=== PATIENT | female | born 1985 | race Two or more races ===

== ENCOUNTER → 2022-04-13 | Outpatient (CLI) | payer BC ==
[2022-04-13 08:04] LABS: Basophils # (auto) 0.1 10 ^3/uL (0-0.2); Basophils % (auto) 1.3 % (0.0-2.0); Eosinophils # (auto) 0.2 10 ^3/uL (0-0.8); Eosinophils % (auto) 2.6 % (0.0-7.0); Hematocrit 39.6 % (36.0-46.0); Hemoglobin 13.3 g/dL (12.2-16.2); Lymphocytes # (auto) 1.4 10 ^3/uL (0.4-5.4); Lymphocytes % (auto) 21.9 % (10.0-50.0); Mean Corpuscular Hemoglobin 29.9 pg (28.0-32.0); Mean Corpuscular Hgb Conc. 33.7 g/dL (32.0-36.0); Mean Corpuscular Volume 88.6 fL (80.0-100.0); Monocytes # (auto) 0.6 10 ^3/uL (0-1.3); Monocytes % (auto) 9.6 % (0.0-12.0); Neutrophils # (auto) 4.1 10 ^3/uL (1.6-8.6); Neutrophils % (auto) 64.6 % (37.0-80.0); Nucleated Red Blood Cells % 0.1 %; Red Blood Cells 4.47 10^6/uL (4.0-5.20); Red Cell Distribution Width 13.2 % (11.8-14.3); White Blood Cell 6.4 10^3/uL (4.4-10.8)
[2022-04-13 08:44] LABS: Albumin 3.6 g/dL (3.4-5.0); Potassium 4.4 mmol/L (3.5-5.1)
[2022-04-13 08:49] LABS: Bilirubin, Total 0.2 mg/dL (0.2-1.0); Total Protein 7.4 g/dL (6.4-8.2)
== END | disposition home or self-care (01) ==
LOC: LAB 07:46
PROVIDERS: ATTEND Student in an Organized Health Care Education/Training Program
DX: Z00.00 Encounter for general adult medical examination without abnormal findings (principal); E78.5 Hyperlipidemia, unspecified
CPT/HCPCS: 36415; 80053; 80061; 85025

== ENCOUNTER → 2022-08-17 | Outpatient (CLI) | payer BC | END | disposition home or self-care (01) | LOC: LAB 17:00 | PROVIDERS: ATTEND Obstetrics & Gynecology Obstetrics | DX: R87.810 Cervical high risk human papillomavirus (HPV) DNA test positive (principal) ==

== ENCOUNTER → 2024-01-21 | Outpatient (CLI) | payer BC ==
[2024-01-21 07:21] LABS: Basophils # (auto) 0.1 10 ^3/uL (0-0.2); Basophils % (auto) 0.9 % (0.0-2.0); Eosinophils # (auto) 0.1 10 ^3/uL (0-0.8); Eosinophils % (auto) 2.1 % (0.0-7.0); Hematocrit 40.7 % (36.0-46.0); Hemoglobin 13.4 g/dL (12.2-16.2); Lymphocytes # (auto) 1.4 10 ^3/uL (0.4-5.4); Lymphocytes % (auto) 21.8 % (10.0-50.0); Mean Corpuscular Hemoglobin 29.4 pg (28.0-32.0); Mean Corpuscular Hgb Conc. 32.9 g/dL (32.0-36.0); Mean Corpuscular Volume 89.5 fL (80.0-100.0); Monocytes # (auto) 0.5 10 ^3/uL (0-1.3); Monocytes % (auto) 8.5 % (0.0-12.0); Neutrophils # (auto) 4.3 10 ^3/uL (1.6-8.6); Neutrophils % (auto) 66.7 % (37.0-80.0); Red Blood Cells 4.55 10^6/uL (4.0-5.20); Red Cell Distribution Width 13.9 % (11.8-14.3); White Blood Cell 6.5 10^3/uL (4.4-10.8)
[2024-01-21 07:43] LABS: Alanine Aminotransferase 27 U/L (7-40); Albumin 4.3 g/dL (3.2-4.8); Alkaline Phosphatase 87 U/L (46-116); Anion Gap 5 (5-15); Aspartate Aminotransferase 19 U/L (13-40); BUN/Creatinine Ratio 11.3 (10.0-20.0); Bilirubin, Total 0.5 mg/dL (0.2-1.0); Blood Urea Nitrogen 7 mg/dL (9-23); Calcium 9.3 mg/dL (8.5-10.1); Carbon Dioxide 28 mmol/L (20-30); Chloride 107 mmol/L (98-107); Cholesterol 208 mg/dL (< 200); Glucose 102 mg/dL (74-106); HDL Cholesterol 67 mg/dL (40-59); LDL Cholesterol 117 mg/dL (< 100); Potassium 3.8 mmol/L (3.5-5.1); Sodium 140 mmol/L (136-145); Triglycerides 91 mg/dL (< 150)
== END | disposition home or self-care (01) ==
LOC: LAB 06:51
PROVIDERS: ATTEND Student in an Organized Health Care Education/Training Program
DX: R00.2 Palpitations (principal); E66.01 Morbid (severe) obesity due to excess calories; R07.89 Other chest pain; F41.9 Anxiety disorder, unspecified
CPT/HCPCS: 36415; 80053; 80061; 84439; 84443; 85025

== ENCOUNTER → 2024-02-29 | Outpatient (CLI) | payer BC | END | disposition home or self-care (01) | LOC: XYW 07:50 | PROVIDERS: ATTEND Student in an Organized Health Care Education/Training Program | DX: R07.9 Chest pain, unspecified (principal) | CPT/HCPCS: 93306 ==

== ENCOUNTER 2025-02-13 09:46 | Outpatient (CLI) | payer BC ==
[2025-02-13 10:25] LABS: Basophils # (auto) 0.1 10 ^3/uL (0-0.2); Eosinophils # (auto) 0 10 ^3/uL (0-0.8); Eosinophils % (auto) 0.4 % (0.0-7.0); Lymphocytes # (auto) 1.3 10 ^3/uL (0.4-5.4)
[2025-02-13 10:27] LABS: Basophils % (auto) 0.8 % (0.0-2.0); Hematocrit 35.9 % (36.0-46.0); Hemoglobin 11.6 g/dL (12.2-16.2); Lymphocytes % (auto) 15.9 % (10.0-50.0); Mean Corpuscular Hemoglobin 24.8 pg (28.0-32.0); Mean Corpuscular Hgb Conc. 32.4 g/dL (32.0-36.0); Mean Corpuscular Volume 76.6 fL (80.0-100.0); Monocytes # (auto) 0.7 10 ^3/uL (0-1.3); Monocytes % (auto) 8.9 % (0.0-12.0); Neutrophils # (auto) 5.8 10 ^3/uL (1.6-8.6); Platelet Count (auto) 183 10^3/uL (140-450); Red Blood Cells 4.69 10^6/uL (4.0-5.20); Red Cell Distribution Width 17.4 % (11.8-14.3); White Blood Cell 7.9 10^3/uL (4.4-10.8)
[2025-02-13 10:54] LABS: Amphetamine Screen, Urine Neg (NEGATIVE); Barbiturate Scree,Urine Neg (NEGATIVE); Benzodiazephine Screen, Urine Neg (NEGATIVE); Cannabinoid Screen, Urine Neg (NEGATIVE); Cocaine Screen, Urine Neg (NEGATIVE); Opiate Scree,Urine Neg (NEGATIVE); Phencyclidine Screen, Urine Neg (NEGATIVE)
[2025-02-15 06:07] LABS: Chlamydia Trachomatis, NAA Negative (Negative); Neisseria gonorrhoeae, NAA Negative (Negative)
== END 2025-02-13 17:00 | disposition home or self-care (01) ==
LOC: LAB 09:46
PROVIDERS: ATTEND Obstetrics & Gynecology
DX: Z34.80 Encounter for supervision of other normal pregnancy, unspecified trimester (principal); Z72.51 High risk heterosexual behavior; Z3A.00 Weeks of gestation of pregnancy not specified
CPT/HCPCS: 36415; 80307; 83036; 84144; 84702; 85025; 86703; 86762; 86780; 86850; 86900; 86901; 87086; 87340

== ENCOUNTER 2025-02-26 08:32 | Outpatient (CLI) | payer BC | END 2025-02-26 17:00 | disposition home or self-care (01) | LOC: LAB 08:32 | PROVIDERS: ATTEND Obstetrics & Gynecology | DX: Z34.80 Encounter for supervision of other normal pregnancy, unspecified trimester (principal); Z3A.00 Weeks of gestation of pregnancy not specified; Z72.51 High risk heterosexual behavior | CPT/HCPCS: 82951 ==

== ENCOUNTER 2025-07-02 11:04 | Outpatient (CLI) | payer OTHER, MEDICAID | END 2025-07-02 17:00 | disposition home or self-care (01) | LOC: LAB 11:04 | DX: O23.40 Unspecified infection of urinary tract in pregnancy, unspecified trimester (principal); N39.0 Urinary tract infection, site not specified; Z3A.00 Weeks of gestation of pregnancy not specified | CPT/HCPCS: 87086 ==

== ENCOUNTER 2025-07-11 09:20 | Observation (INO) | payer OTHER, MEDICAID ==
[2025-07-11 10:27] LABS: Hemoglobin 10.6 g/dL (12.2-16.2); Mean Corpuscular Hemoglobin 26.7 pg (28.0-32.0); Nucleated Red Blood Cells % 0.0 %
[2025-07-11 10:30] LABS: Hematocrit 32.4 % (36.0-46.0); Mean Corpuscular Volume 81.6 fL (80.0-100.0)
[2025-07-11 10:37] LABS: Protein, Urine 8.2 mg/dL (1-14)
[2025-07-11 10:42] LABS: Alanine Aminotransferase 22 U/L (7-40); Albumin 3.4 g/dL (3.2-4.8); Alkaline Phosphatase 77 U/L (46-116); Anion Gap 10 (5-15); BUN/Creatinine Ratio 16.3 (10.0-20.0); Carbon Dioxide 23 mmol/L (20-31); Chloride 106 mmol/L (98-107); Glucose 79 mg/dL (74-106); INR 0.97 (0.9-1.15); Partial Thromboplastin Time 28.5 SEC (24.5-34.5); Potassium 3.8 mmol/L (3.5-5.1); Prothrombin Time 10.3 sec (9.3-11.8); Sodium 139 mmol/L (136-145); Total Protein 6.1 g/dL (5.7-8.2)
[2025-07-11 10:46] LABS: Bilirubin, Total 0.3 mg/dL (0.2-1.0); Blood Urea Nitrogen 7 mg/dL (9-23); Calcium 8.5 mg/dL (8.7-10.4)
[2025-07-11 11:05] LABS: Uric Acid 5.5 mg/dL (3.1-7.8)
[2025-07-11] MEDS ORDERED: PREN-96 PO (11:16)
[2025-07-11 11:33] LABS: Urine Protein, UAD Negative (Negative)
== END 2025-07-11 11:31 | disposition home or self-care (01) ==
LOC: LDRP 09:20
PROVIDERS: ADMIT Obstetrics & Gynecology; ATTEND Obstetrics & Gynecology
DX: O24.419 Gestational diabetes mellitus in pregnancy, unspecified control (principal); R79.1 Abnormal coagulation profile; Z98.890 Other specified postprocedural states; Z3A.27 27 weeks gestation of pregnancy
CPT/HCPCS: 36415; 80053; 81001; 81002; 82570; 82948; 82962; 84156; 84550; 85025; 85610; 85730; 94760; G0378; 59025

== ENCOUNTER 2025-07-13 06:03 | Observation (INO) | payer MEDICAID, OTHER ==
[~2025-07-13] VITALS: Ht 154.9 cm; Wt 102.5 kg
[~2025-07-13 06:03] MED LIST: PREN-96 PO
[2025-07-13 10:54] LABS: Protein, Urine < 6.0 mg/dL (1-14)
[2025-07-13 10:56] LABS: Protein, Urine 6.6 mg/dL (1-14)
[2025-07-13] MEDS ORDERED: METF-370 PO (11:03)
[2025-07-13 11:05] LABS: Urine Protein, UAD Negative (Negative)
[2025-07-13 11:32] LABS: Urine Total Volume, 24 Hours 3850 mL
--- NOTE | 2025-07-13 12:09 | DVHDS2 ---
Physician Discharge Progress N Final Diagnosis: IUP @ 28wks and stable Secondary Diagnosis: Elevated BP without diagnosis of HTN Operations or Procedures: Operations or Procedures NST Other Interventions Other Interventions PIH labs neg Condition on Discharge: Stable Disposition: Home Discharge Instructions: Diet: Regular Activity: No Restrictions, As Tolerated Follow Up/Referral: PRN Medications: N/A Follow Up Care: Discharge Statement: "Patient was advised to return to the ER or call 911 if any headaches, dizziness, shortness of breath, chest pain, abdominal pain, bleeding, fevers, or worsening of medical condition. Patient was counseled about treatment plan, medications, possible side effects, patientverbalized understanding. All questions were answered to the best of my ability. This discharge took greater then 30 minutes in planning, reviewing documentation, counseling the patient, and discussing with other team members." Visit Coding OBGYN Date of Service: Jul 13, 2025 Billing Provider: SARAH SCHUSTER DO SECRETARIAL STENOGRAPHER Common Visit Codes: 54021-TZT/OBS SAME DATE (HIGH) SECRETARIAL STENOGRAPHER Procedure Codes: 51766-85- NON-STRESS TEST SARAH SCHUSTER DO Jul 13, 2025 12:09
== END 2025-07-13 11:50 | disposition home or self-care (01) ==
LOC: LDRP 09:47
PROVIDERS: ADMIT Obstetrics & Gynecology; ATTEND Obstetrics & Gynecology
DX: O26.893 Other specified pregnancy related conditions, third trimester (principal); R03.0 Elevated blood-pressure reading, without diagnosis of hypertension; Z3A.28 28 weeks gestation of pregnancy; Z98.890 Other specified postprocedural states; Z79.899 Other long term (current) drug therapy
CPT/HCPCS: 59025; 81001; 82570; 82948; 82962; 84156; 94760; G0378

== ENCOUNTER 2025-07-16 08:37 | Observation (INO) | payer OTHER, MEDICAID ==
[~2025-07-16 08:37] MED LIST changes: +METF-370 PO
--- NOTE | 2025-07-17 05:40 | DVHDS2 ---
Discharge Summary Date of Admission Jul 16, 2025 at 09:02 Date of Discharge: Jul 16, 2025 Admitting Diagnosis Twenty-eight weeks GDM A2 PIH Labs/Diagnostic Data: Laboratory Results Test 07/16/25 10:05 POC Glucose 88 mg/dl (70-106) Brief Hx & Hospital Course: Patient here for NST BPP both reassuring and performed Condition at Discharge: Good Final Diagnosis/Problems List Reassuring 28 week intrauterine with history PH GDM A2 Discharge Disposition: Home Discharge Instruct/Medications Diet: Regular, Consistent carbohydrate Activity: No Restrictions, As Tolerated Follow Up/Referral: As scheduled routine Medications: Continue current medications Scheduled Metformin Hydrochloride (Metformin Hcl), 500 MG PO DAILY, (Reported) Vit W/ Ferrous Fumara ( One Daily), 1 TAB PO DAILY, (Reported) Discharge Statement: "Patient was advised to return to the ER or call 911 if any headaches, dizziness, shortness of breath, chest pain, abdominal pain, bleeding, fevers, or worsening of medical condition. Patient was counseled about treatment plan, medications, possible side effects, patientverbalized understanding. All questions were answered to the best of my ability. This discharge took greater then 30 minutes in planning, reviewing documentation, counseling the patient, and discussing with other team members." ASSESSMENT ASSESSMENT Assessment Visit Coding OBGYN Date of Service: Jul 16, 2025 Billing Provider: ERIKA MEYERS DO UNIFIED COMMUNICATIONS ENGINEER Common Visit Codes: 06888-[id number] INP/OBS CARE(HIGH), 33375-LQA/OBS SAME DATE (LOW), 71366-ZSM/OBS SAME DATE (MOD) UNIFIED COMMUNICATIONS ENGINEER Procedure Codes: 29196-54- NON-STRESS TEST ERIKA MEYERS DO Jul 17, 2025 05:39
== END 2025-07-16 10:45 | disposition home or self-care (01) ==
LOC: LDRP 09:02
PROVIDERS: ADMIT Obstetrics & Gynecology; ATTEND Obstetrics & Gynecology
DX: O24.419 Gestational diabetes mellitus in pregnancy, unspecified control (principal); O13.3 Gestational [pregnancy-induced] hypertension without significant proteinuria, third trimester; Z3A.28 28 weeks gestation of pregnancy; Z98.890 Other specified postprocedural states
CPT/HCPCS: 59025; 81002; 82948; 82962; 94760; G0378

== ENCOUNTER 2025-07-19 06:08 | Observation (INO) | payer OTHER, MEDICAID ==
--- NOTE | 2025-07-20 13:23 | DVHDS2 ---
Physician Discharge Progress N Final Diagnosis: gdm 28wks Operations or Procedures: Operations or Procedures nst reactive reviwed,sono Condition on Discharge: Good Disposition: Home Discharge Instructions: Diet: Regular, Consistent carbohydrate Activity: No Restrictions, As Tolerated Medications: na Follow Up Care: Specialist: 3d Discharge Statement: "Patient was advised to return to the ER or call 911 if any headaches, dizziness, shortness of breath, chest pain, abdominal pain, bleeding, fevers, or worsening of medical condition. Patient was counseled about treatment plan, medications, possible side effects, patientverbalized understanding. All questions were answered to the best of my ability. This discharge took greater then 30 minutes in planning, reviewing documentation, counseling the patient, and discussing with other team members." Visit Coding OBGYN Date of Service: Jul 19, 2025 Billing Provider: KAT LEWIS DO DOPE AND FABRIC WORKER Common Visit Codes: 72669-WFZKIPH OBS CARE (HIGH) DOPE AND FABRIC WORKER Procedure Codes: 10415-83- NON-STRESS TEST KAT LEWIS DO Jul 20, 2025 13:23
== END 2025-07-19 08:53 | disposition home or self-care (01) ==
LOC: LDRP 08:00 → UNDOADMOB 08:00 → LDRP 08:10 → UNDODISOB 08:53
PROVIDERS: ADMIT Obstetrics & Gynecology; ATTEND Obstetrics & Gynecology
DX: O24.419 Gestational diabetes mellitus in pregnancy, unspecified control (principal); Z3A.28 28 weeks gestation of pregnancy; Z98.890 Other specified postprocedural states
CPT/HCPCS: 59025; 81002; 82948; 82962; 94760; G0378

== ENCOUNTER 2025-07-23 08:10 | Observation (INO) | payer OTHER, MEDICAID ==
--- NOTE | 2025-07-23 21:56 | DVHDS2 ---
Discharge Summary Date of Admission Jul 23, 2025 at 08:17 Date of Discharge: Jul 23, 2025 Admitting Diagnosis Twenty-nine week GDM A2 Labs/Diagnostic Data: Laboratory Results Test 07/23/25 09:00 POC Glucose 106 mg/dl (70-106) Brief Hx & Hospital Course: Patient had NST BPP performed reassuring Operations or Procedures NST BPP Condition at Discharge: Good Final Diagnosis/Problems List GDM A2 29+ weeks Discharge Disposition: Home Discharge Instruct/Medications Diet: Consistent carbohydrate Activity: No Restrictions, As Tolerated Activity comment: Kick counts labor precautions carbohydrate Follow Up/Referral: As scheduled routine Medications: Resume home meds Scheduled Metformin Hydrochloride (Metformin Hcl), 500 MG PO DAILY, (Reported) Vit W/ Ferrous Fumara ( One Daily), 1 TAB PO DAILY, (Reported) Discharge Statement: "Patient was advised to return to the ER or call 911 if any headaches, dizziness, shortness of breath, chest pain, abdominal pain, bleeding, fevers, or worsening of medical condition. Patient was counseled about treatment plan, medications, possible side effects, patientverbalized understanding. All questions were answered to the best of my ability. This discharge took greater then 30 minutes in planning, reviewing documentation, counseling the patient, and discussing with other team members." ASSESSMENT ASSESSMENT Assessment Visit Coding OBGYN Date of Service: Jul 23, 2025 Billing Provider: ERIKA MEYERS DO FIRE EXTINGUISHER TECHNICIAN Common Visit Codes: 04471-[id number] INP/OBS CARE(HIGH), 80159-FFJ/OBS SAME DATE (LOW), 33511-OCG/OBS SAME DATE (MOD) FIRE EXTINGUISHER TECHNICIAN Procedure Codes: 76768-63- NON-STRESS TEST ERIKA MEYERS DO Jul 23, 2025 21:56
== END 2025-07-23 09:33 | disposition home or self-care (01) ==
LOC: UNDOADMOB 08:10 → LDRP 08:10
PROVIDERS: ADMIT Obstetrics & Gynecology; ATTEND Obstetrics & Gynecology
DX: O24.419 Gestational diabetes mellitus in pregnancy, unspecified control (principal); Z3A.29 29 weeks gestation of pregnancy; Z98.890 Other specified postprocedural states
CPT/HCPCS: 59025; 81002; 82948; 82962; 94760; G0378

== ENCOUNTER 2025-07-26 06:16 | Observation (INO) | payer OTHER, MEDICAID ==
--- NOTE | 2025-07-27 13:11 | DVHDS2 ---
Physician Discharge Progress N Final Diagnosis: gdm Operations or Procedures: Operations or Procedures nst reactive reviwed,sono Condition on Discharge: Good Disposition: Home Discharge Instructions: Diet: Regular Activity: No Restrictions, As Tolerated Medications: na Follow Up Care: Specialist: 1w Discharge Statement: "Patient was advised to return to the ER or call 911 if any headaches, dizziness, shortness of breath, chest pain, abdominal pain, bleeding, fevers, or worsening of medical condition. Patient was counseled about treatment plan, medications, possible side effects, patientverbalized understanding. All questions were answered to the best of my ability. This discharge took greater then 30 minutes in planning, reviewing documentation, counseling the patient, and discussing with other team members." Visit Coding OBGYN Date of Service: Jul 26, 2025 Billing Provider: KAT LEWIS DO CORPORATE RECYCLING MANAGER Common Visit Codes: 71640-JMGBZVA OBS CARE (HIGH) CORPORATE RECYCLING MANAGER Procedure Codes: 04738-79- NON-STRESS TEST KAT LEWIS DO Jul 27, 2025 13:11
== END 2025-07-26 09:33 | disposition home or self-care (01) ==
LOC: LDRP 08:15
PROVIDERS: ADMIT Obstetrics & Gynecology; ATTEND Obstetrics & Gynecology
DX: O24.419 Gestational diabetes mellitus in pregnancy, unspecified control (principal); Z3A.29 29 weeks gestation of pregnancy; Z98.890 Other specified postprocedural states
CPT/HCPCS: 59025; 81002; 82948; 82962; 94760; G0378

== ENCOUNTER 2025-07-30 00:51 | Observation (INO) | payer OTHER, MEDICAID ==
--- NOTE | 2025-07-31 01:02 | DVHDS2 ---
Physician Discharge Progress N Final Diagnosis: GDMA2 30wks Operations or Procedures: Operations or Procedures nst reactive reviwed,sono Condition on Discharge: Good Disposition: Home Discharge Instructions: Diet: Consistent carbohydrate Activity: No Restrictions, As Tolerated Medications: na Follow Up Care: Specialist: 4d Discharge Statement: "Patient was advised to return to the ER or call 911 if any headaches, dizziness, shortness of breath, chest pain, abdominal pain, bleeding, fevers, or worsening of medical condition. Patient was counseled about treatment plan, medications, possible side effects, patientverbalized understanding. All questions were answered to the best of my ability. This discharge took greater then 30 minutes in planning, reviewing documentation, counseling the patient, and discussing with other team members." Visit Coding OBGYN Date of Service: Jul 30, 2025 Billing Provider: KAT LEWIS DO CALL OUT CLERK Common Visit Codes: 49921-GJSANQB OBS CARE (HIGH) CALL OUT CLERK Procedure Codes: 71173-86- NON-STRESS TEST KAT LEWIS DO Jul 31, 2025 01:02
== END 2025-07-30 10:25 | disposition home or self-care (01) ==
LOC: LDRP 09:11
PROVIDERS: ADMIT Obstetrics & Gynecology; ATTEND Obstetrics & Gynecology
DX: O24.419 Gestational diabetes mellitus in pregnancy, unspecified control (principal); Z3A.30 30 weeks gestation of pregnancy; Z98.890 Other specified postprocedural states
CPT/HCPCS: 59025; 81002; 82948; 82962; 94760; G0378

== ENCOUNTER 2025-08-04 04:40 | Observation (INO) | payer OTHER, MEDICAID ==
--- NOTE | 2025-08-04 11:58 | DVHDS2 ---
Physician Discharge Progress N Final Diagnosis: gdma2 31wks Operations or Procedures: Operations or Procedures nst reactive reviwed,sono Condition on Discharge: Good Disposition: Home Discharge Instructions: Diet: Consistent carbohydrate Activity: No Restrictions, As Tolerated Medications: na Follow Up Care: Specialist: 3d Discharge Statement: "Patient was advised to return to the ER or call 911 if any headaches, dizziness, shortness of breath, chest pain, abdominal pain, bleeding, fevers, or worsening of medical condition. Patient was counseled about treatment plan, medications, possible side effects, patientverbalized understanding. All questions were answered to the best of my ability. This discharge took greater then 30 minutes in planning, reviewing documentation, counseling the patient, and discussing with other team members." Visit Coding OBGYN Date of Service: Aug 04, 2025 Billing Provider: KAT LEWIS DO MEDICAL DRIVER Common Visit Codes: 64093-QDFPMAS OBS CARE (HIGH) MEDICAL DRIVER Procedure Codes: 92472-37- NON-STRESS TEST KAT LEWIS DO Aug 04, 2025 11:58
== END 2025-08-04 11:35 | disposition home or self-care (01) ==
LOC: LDRP 10:02
PROVIDERS: ADMIT Obstetrics & Gynecology; ATTEND Obstetrics & Gynecology
DX: O24.419 Gestational diabetes mellitus in pregnancy, unspecified control (principal); Z3A.31 31 weeks gestation of pregnancy; Z98.890 Other specified postprocedural states
CPT/HCPCS: 59025; 81002; 82948; 82962; 94760; A4649; G0378

== ENCOUNTER 2025-08-09 07:48 | Observation (INO) | payer OTHER, MEDICAID ==
[~2025-08-09] VITALS: Ht 154.9 cm; Wt 101.6 kg
--- NOTE | 2025-08-17 13:56 | DVHDS2 ---
Physician Discharge Progress N Final Diagnosis: ama,gdm 31wks Operations or Procedures: Operations or Procedures nst reactive reviwed,sono Condition on Discharge: Good Disposition: Home Discharge Instructions: Diet: Consistent carbohydrate Activity: Light activity Medications: na Follow Up Care: Specialist: 2d Discharge Statement: "Patient was advised to return to the ER or call 911 if any headaches, dizziness, shortness of breath, chest pain, abdominal pain, bleeding, fevers, or worsening of medical condition. Patient was counseled about treatment plan, medications, possible side effects, patientverbalized understanding. All questions were answered to the best of my ability. This discharge took greater then 30 minutes in planning, reviewing docu mentation, counseling the patient, and discussing with other team members." Visit Coding OBGYN Date of Service: Aug 09, 2025 Billing Provider: KAT LEWIS DO POURER METAL Common Visit Codes: 72757-NOLMDNE OBS CARE (HIGH) POURER METAL Procedure Codes: 55437-98- NON-STRESS TEST KAT LEWIS DO Aug 17, 2025 13:56
== END 2025-08-09 08:35 | disposition home or self-care (01) ==
LOC: UNDOADMOB 07:48 → LDRP 07:48
PROVIDERS: ADMIT Obstetrics & Gynecology; ATTEND Obstetrics & Gynecology
DX: O24.419 Gestational diabetes mellitus in pregnancy, unspecified control (principal); O09.523 Supervision of elderly multigravida, third trimester; Z3A.31 31 weeks gestation of pregnancy; Z98.890 Other specified postprocedural states
CPT/HCPCS: 59025; 81002; 82948; 94760; A4649; G0378

== ENCOUNTER 2025-08-12 01:59 | Observation (INO) | payer OTHER, MEDICAID ==
--- NOTE | 2025-08-12 13:40 | DVH ---
CLINICAL HISTORY: G gestational diabetes. Advanced maternal age. COMPARISON: None TECHNIQUE: biophysical profile was performed. Transabdominal sonographic images of the fetus were obtained. FINDINGS: The fetus is in cephalic position. heart rate measures 143 BPM. Amniotic fluid index measures 18.7 cm. The placenta is anterior in position without visualized evidence of previa or abruption. BPP profile is an overall score of 8/8, with 2/2 points for breathing, with at least one episode of breathing over a 30 second duration during a 30 minute observation, 2/2 points for movements, with 3 or more discrete body or limb movements, 2/2 points for tone, with one or more episodes of extremity extension with return to flexion, or opening and closing of hand, and 2/2 points for amniotic fluid, with at least 1 pocket of amniotic fluid that measures 2 cm in 2 perpendicular planes. IMPRESSION: BPP score of 8/8.
--- NOTE | 2025-08-12 15:15 | DVHDS2 ---
Physician Discharge Progress N Final Diagnosis: IUP 32 wk Secondary Diagnosis: GDM, AMA Operations or Procedures: Operations or Procedures NST/BPP and JAYMIE PATIENT: MCIKNLEY HUMPHREY ACCT: [id number] UNIT: [id number] : 1985 LOC: LD ROOM / BED: TRIAGE2 / A AGE / SEX: 40 / F ADM STATUS: ADM IN SERVICE 1302 ORDERING PHYSICIAN: SARAH SCHUSTER DO PROCEDURE(s): BPP - BIOPHYSICAL PROFILE REASON: Gdma2/AMA ORDER NUMBER(s): [id number], ACCESSION NUMBER(s): [id number] CLINICAL HISTORY: G gestational diabetes. Advanced maternal age. COMPARISON: None TECHNIQUE: biophysical profile was performed. Transabdominal sonographic images of the fetus were obtained. FINDINGS: The fetus is in cephalic position. heart rate measures 143 BPM. Amniotic fluid index measures 18.7 cm. The placenta is anterior in position without visualized evidence of previa or abruption. BPP profile is an overall score of 8/8, with 2/2 points for breathing, with at least one episode of breathing over a 30 second duration during a 30 minute observation, 2/2 points for movements, with 3 or more discrete body or limb movements, 2/2 points for tone, with one or more episodes of extremity extension with return to flexion, or opening and closing of hand, and 2/2 points for amniotic fluid, with at least 1 pocket of amniotic fluid that measures 2 cm in 2 perpendicular planes. IMPRESSION: BPP score of 8/8. ATED BY: BRUNO ANTHONY DO DICTATED DATE/TIME: 08/12/25 2643 Condition on Discharge: Stable Disposition: Home Discharge Instructions: Diet: Consistent carbohydrate Activity: No Restrictions, As Tolerated Follow Up/Referral: FOLLOW UP IN [facility]THPLACE ON WednesdayAUGUST 16 AT 7:00 PM AND WednesdayAugust AT 1300 FOR NST/ BPP Medications: N/A Follow Up Care: Discharge Statement: "Patient was advised to return to the ER or call 911 if any headaches, diz ziness, shortness of breath, chest pain, abdominal pain, bleeding, fevers, or worsening of medical condition. Patient was counseled about treatment plan, medications, possible side effects, patientverbalized understanding. All questions were answered to the best of my ability. This discharge took greater then 30 minutes in planning, reviewing documentation, counseling the patient, and discussing with other team members." Visit Coding OBGYN Date of Service: Aug 12, 2025 Billing Provider: SARAH SCHUSTER DO TOLL LINEMAN Common Visit Codes: 98072-HAY/OBS SAME DATE (HIGH) SARAH SCHUSTER DO Aug 12, 2025 15:15
== END 2025-08-12 14:09 | disposition home or self-care (01) ==
LOC: LDRP 12:56
PROVIDERS: ADMIT Obstetrics & Gynecology; ATTEND Obstetrics & Gynecology
DX: O24.419 Gestational diabetes mellitus in pregnancy, unspecified control (principal); O09.513 Supervision of elderly primigravida, third trimester; Z3A.32 32 weeks gestation of pregnancy; Z98.890 Other specified postprocedural states
CPT/HCPCS: 76818; 81002; 82948; 82962; 94760; A4649; G0378; 59025; 76819

== ENCOUNTER 2025-08-16 18:39 | Observation (INO) | payer OTHER, MEDICAID ==
--- NOTE | 2025-08-16 20:18 | DVH ---
LIMITED OB ULTRASOUND > 14 WKS: HISTORY: GDMA2 AND AMA TECHNIQUE: Multiple real-time grayscale images of the gravid uterus with duplex Doppler color flow and M-mode spectral analysis. COMPARISON: US BIOPHYSICAL PROFILE on DOS: 08/12/25 FINDINGS: Single intrauterine gestation. biometric measurements were not performed. heart rate: 144 beats per minute JAYMIE: 23.1 cm Cervix: Appears long and closed. Cephalic presentation. Anterior placenta. No evidence of previa or abruption. Small anterior leak. Biophysical profile: breathin/2 movement: 2/2 tone: 2/2 Amniotic fluid: 2/2 Total: 8/8 IMPRESSION: Normal biophysical profile score of 8/8.
--- NOTE | 2025-08-16 20:28 | DVHDS2 ---
Physician Discharge Progress N Final Diagnosis: NST/BPP for GDMA2 and AMA Operations or Procedures: Operations or Procedures SUBJECTIVE Alison Dominguez is a 40 yo with IUP at 32w6d presenting for scheduled NST/BPP for GDMA2 and AMA Denies feeling UCs, vaginal bleeding, or leaking fluid. Endorses positive movement. Is taking 1000mg metformin every night as prescribed. Currently has a UTI and is taking keflex as prescribed EDC: 10/05/2025 Ob Hx: x3 Med Hx: denies Surg Hx: denies Review of Systems: Neuro: No complaints Heart: No complaints Lungs: No complaints GI: No complaints : No complaints Skin: No complaints Extremities: No complaints OBJECTIVE VSS FHR: Baseline: 135 Variability: Moderate Accelerations: Present Decelerations: Absent Category: 1 UCs: none noted Neuro: A&O x4. No apparent distress. Affect appropriate Heart: Regular rate and rhythm Lungs: Clear bilaterally GI: Gravid. No tenderness Skin: Dry and intact. No rashes or lesions BPP: 04/13 JAYMIE: 23.1cm ASSESSMENT 40 yo at 32w6d Category 1 Tracing AMA GDMA2, on metformin UTI, on keflex PLAN -Discussed elevated JAYMIE. Patient states she already knew the fluid was high, but it "goes back down". Emphasized importance of keeping appt for NST/BPP to monitor fluid and wellbeing. Patient verbalizes understanding. Next appt Wednesday, 08/19 -Discussed labor precautions and kick counts. Answered all patient questions and concerns. Patient verbalizes understanding. Condition on Discharge: Good Disposition: Home Discharge Instructions: Diet: Regular Activity: No Restrictions, As Tolerated Follow Up/Referral: Next appt 08/19 Medications: No change Follow Up Care: Discharge Statement: "Patient was advised to return to the ER or call 911 if any headaches, di zziness, shortness of breath, chest pain, abdominal pain, bleeding, fevers, or worsening of medical condition. Patient was counseled about treatment plan, medications, possible side effects, patientverbalized understanding. All questions were answered to the best of my ability. This discharge took greater then 30 minutes in planning, reviewing documentation, counseling the patient, and discussing with other team members." Visit Coding OBGYN Date of Service: Aug 16, 2025 Billing Provider: ART GRADY CNM CORONER/MEDICAL EXAMINER Common Visit Codes: 41025-[id number] INP/OBS CARE (MOD) CORONER/MEDICAL EXAMINER Procedure Codes: 37818-21- NON-STRESS TEST ART GRADY CNM Aug 16, 2025 20:28
== END 2025-08-16 20:36 | disposition home or self-care (01) ==
LOC: LDRP 18:39
PROVIDERS: ADMIT Obstetrics & Gynecology; ATTEND Obstetrics & Gynecology
DX: O23.43 Unspecified infection of urinary tract in pregnancy, third trimester (principal); N39.0 Urinary tract infection, site not specified; O24.419 Gestational diabetes mellitus in pregnancy, unspecified control; O09.523 Supervision of elderly multigravida, third trimester; Z3A.32 32 weeks gestation of pregnancy; Z79.899 Other long term (current) drug therapy; Z98.890 Other specified postprocedural states
CPT/HCPCS: 76818; 81002; 82948; 82962; 94760; A4649; G0378; 59025; 76819

== ENCOUNTER 2025-08-19 06:56 | Observation (INO) | payer OTHER, MEDICAID ==
[~2025-08-19] VITALS: Ht 154.9 cm; Wt 101.6 kg
--- NOTE | 2025-08-19 14:41 | DVH ---
BIOPHYSICAL PROFILE HISTORY: GDMA2, AMA TECHNIQUE: Multiple transabdominal real-time grayscale sonographic images through the gravid uterus of the fetus with duplex Doppler color flow and M-mode spectral analysis FINDINGS: BIOPHYSICAL PROFILE: breathing score: 2 movement score: 2 tone score: 2 Quantitative JAYMIE score: 2 (JAYMIE: 19.3 cm, mvp: 6.5 cm.) Total score: 8/8 The cervix N/V Single live fetus in cephalic presentation. heart rate 142 beats per minute. Anterior Grade 1 placenta without previa or abruption Single live fetus at 33 weeks 2 days Biophysical profile score 8/8 corresponding to an BRIAN of October 05, 2025 Estimated weight not calculated IMPRESSION: 1. Biophysical profile score: 8/8 2. FHR: 142 bpm
--- NOTE | 2025-08-19 15:34 | DVHDS2 ---
Discharge Summary Date of Admission Aug 19, 2025 at 12:30 Date of Discharge: Aug 19, 2025 Admitting Diagnosis Thirty-three weeks GDM A2 AMA Wounds: None Labs/Diagnostic Data: Laboratory Results Test 08/19/25 14:01 POC Glucose 100 mg/dl (70-106) Brief Hx & Hospital Course: Patient here for routine NST BPP both performed both reassuring Consults/Reason for consult None Operations or Procedures None Condition at Discharge: Good Final Diagnosis/Problems List 33 weeks GDM A2 AMA reassuring heart tones reassuring maternal condition Discharge Disposition: Home SNF Discharge Will this Physician continue t: No Discharge Instruct/Medications Diet: Regular, Consistent carbohydrate Activity: Light activity Activity comment: Pelvic rest kick counts labor precautions Follow Up/Referral: Follow up as scheduled MA Ob N perinatology. Scheduled Metformin Hydrochloride (Metformin Hcl), 1,000 MG PO DAILY, (Reported) Vit W/ Ferrous Fumara ( One Daily), 1 TAB PO DAILY, (Reported) Discharge Statement: "Patient was advised to return to the ER or call 911 if any headaches, dizziness, shortness of breath, chest pain, abdominal pain, bleeding, fevers, or worsening of medical condition. Patient was counseled about treatment plan, medications, possible side effects, patientverbalized understanding. All questions were answered to the best of my ability. This discharge took greater then 30 minutes in planning, reviewing documentation, counseling the patient, and discussing with other team members." ASSESSMENT ASSESSMENT Assessment Visit Coding OBN Date of Service: Aug 19, 2025 Billing Provider: ERIKA MEYERS DO PERFUME MAKER Common Visit Codes: 49389-CMV/OBS SAME DATE (LOW), 17083-STD/OBS SAME DATE (MOD), 31450-CJX/OBS SAME DATE (HIGH) PERFUME MAKER Procedure Codes: 97814-73- NON-STRESS TEST ERIKA MEYERS DO Aug 19, 2025 15:33
== END 2025-08-19 15:03 | disposition home or self-care (01) ==
LOC: LDRP 12:30 → UNDOADMOB 12:30
PROVIDERS: ADMIT Obstetrics & Gynecology; ATTEND Obstetrics & Gynecology
DX: O24.419 Gestational diabetes mellitus in pregnancy, unspecified control (principal); O09.523 Supervision of elderly multigravida, third trimester; Z3A.33 33 weeks gestation of pregnancy; Z98.890 Other specified postprocedural states
CPT/HCPCS: 76818; 81002; 82948; 82962; 94760; A4649; G0378; 59025; 76819

== ENCOUNTER 2025-08-23 18:49 | Observation (INO) | payer OTHER, MEDICAID ==
[2025-08-23 20:31] LABS: Vaginal Bacteria Few; Vaginal Trichomonas Not Present
[2025-08-23 20:32] LABS: Vaginal Clue Cells None Seen; Vaginal Epithelial Cells Moderate
[2025-08-23 20:46] LABS: Urine Protein, UAD Negative (Negative)
--- NOTE | 2025-08-23 21:30 | DVHDS2 ---
Physician Discharge Progress N Final Diagnosis: NST/BPP for AMA, GDMA2 Operations or Procedures: Operations or Procedures SUBJECTIVE Alison Dominguez is a 40 yo with IUP at 33w6d presenting for scheduled NST/BPP for GDMA2, AMA, and elevated JAYMIE Denies feeling UCs, vaginal bleeding, or leaking fluid. Endorses positive movement. Is taking 1000mg metformin every night as prescribed. Currently has a UTI and is taking keflex as prescribed. States she has started feeling some pelvic itching and it feels like a yeast infection to her EDC: 10/05/2025 Ob Hx: x3 Med Hx: denies Surg Hx: denies Review of Systems: Neuro: No complaints Heart: No complaints Lungs: No complaints GI: No complaints : Mild pelvic itching Skin: No complaints Extremities: No complaints OBJECTIVE VSS Reactive, Category 1 tracing UCs: none noted Neuro: A&O x4. No apparent distress. Affect appropriate Heart: Regular rate and rhythm Lungs: Clear bilaterally GI: Gravid. No tenderness Skin: Dry and intact. No rashes or lesions BPP: 04/13 JAYMIE: 19.7cm [place]: pos for bacteria, negative clue cells ASSESSMENT 40 yo at 33w6d Category 1 Tracing AMA GDMA2, on metformin UTI, on keflex Possible yeast infection PLAN -Discussed fluctuating JAYMIE. Patient states she already knew the fluid was high, but it always "goes back down". Emphasized importance of keeping appt for NST/BPP to monitor fluid and wellbeing. Patient verbalizes understanding. Next NST on Wednesday, 08/26 and appt on Wednesday, 08/27 -Discussed vaginitis and ways to promote vaginal hygiene while on antibiotics. Encouraged patient to take 7 day course of vaginal monistat -Discussed labor precautions and kick counts. Answered all patient questions and concerns. Patient verbalizes understanding. Condition on Discharge: Good Disposition: Home Discharge Instructions: Diet: Consistent carbohydrate Activity: No Restrictions, As Tolerated Medications: Add OTC monistat, 7 day course. Follow Up Care: Discharge Statement: "Patient was advised to return to the ER or call 911 if any headaches, dizziness, shortness of breath, chest pain, abdominal pain, bleeding, fevers, or worsening of medical condition. Patient was counseled about treatment plan, medications, possible side effects, patientverbalized understanding. All questions were answered to the best of my ability. This discharge took greater then 30 minutes in planning, reviewing documentation, counseling the patient, and discussing with other team members." Visit Coding OBGYN Date of Service: Aug 23, 2025 Billing Provider: ART GRADY CNM CONTAINER CRANE OPERATOR Common Visit Codes: 86117-MGRUXJZ INP/OBS CARE (MOD) CONTAINER CRANE OPERATOR Procedure Codes: 23843-88- NON-STRESS TEST ART GRADY CNM Aug 23, 2025 21:30
--- NOTE | 2025-08-23 22:45 | DVH ---
OB ULTRASOUND, LIMITED CLINICAL INDICATION: GDMA2/POLY TECHNIQUE: Multiple grayscale ultrasound and M-mode images were obtained of the pelvis for evaluation of intrauterine . COMPARISON: US BIOPHYSICAL PROFILE on DOS: 08/19/25 FINDINGS: A single living fetus is seen in cephalic presentation. Biophysical profile: 04/13 breathin movements: 2 tone: 2 Amniotic fluid volume: 2 Placenta: Anterior, grade 2. Amniotic fluid: Visibly normal. JAYMIE 19.7 cm heart rate: 139 beats/min. A complete anatomic survey was not performed on this exam. Cervix is 3.9 cm and closed. IMPRESSION: 1. Biophysical profile: 04/13
== END 2025-08-23 20:48 | disposition home or self-care (01) ==
LOC: LDRP 18:49
PROVIDERS: ADMIT Obstetrics & Gynecology; ATTEND Obstetrics & Gynecology
DX: O24.419 Gestational diabetes mellitus in pregnancy, unspecified control (principal); O09.523 Supervision of elderly multigravida, third trimester; O23.43 Unspecified infection of urinary tract in pregnancy, third trimester; N39.0 Urinary tract infection, site not specified; Z3A.33 33 weeks gestation of pregnancy; Z79.899 Other long term (current) drug therapy
CPT/HCPCS: 76818; 81001; 81002; 82948; 82962; 87086; 87210; 94760; A4649; G0378; 59025; 76819

== ENCOUNTER 2025-08-26 12:58 | Observation (INO) | payer OTHER, MEDICAID ==
--- NOTE | 2025-08-26 14:22 | DVH ---
BIOPHYSICAL PROFILE HISTORY: GDMA2/poly/AMA TECHNIQUE: Multiple transabdominal real-time grayscale sonographic images through the gravid uterus of the fetus with duplex Doppler color flow and M-mode spectral analysis FINDINGS: BIOPHYSICAL PROFILE: breathing score: 2 movement score: 2 tone score: 2 Quantitative JAYMIE score: 2 Cm.) Total score: 8 Single live fetus in cephalic presentation. heart rate 147 beats per minute. Grade 2 placenta without previa or abruption Placenta is anterior. Biophysical profile score 8 corresponding to an BRIAN of 10/05/2025 IMPRESSION: 1. Biophysical profile score: 8
--- NOTE | 2025-08-28 08:05 | DVHDS2 ---
Physician Discharge Progress N Final Diagnosis: gdm,poly,ama 34wks Operations or Procedures: Operations or Procedures nst reactive reviwed,sono Condition on Discharge: Good Disposition: Home Discharge Instructions: Diet: Consistent carbohydrate Activity: No Restrictions, As Tolerated Medications: na Follow Up Care: Specialist: 3d Discharge Statement: "Patient was advised to return to the ER or call 911 if any headaches, dizziness, shortness of breath, chest pain, abdominal pain, bleeding, fevers, or worsening of medical condition. Patient was counseled about treatment plan, medications, possible side effects, patientverbalized understanding. All questions were answered to the best of my ability. This discharge took greater then 30 minutes in planning, reviewing documentation, counseling the patient, and discussing with other team members." Visit Coding OBGYN Date of Service: Aug 27, 2025 Billing Provider: KAT LEWIS DO SHEET METAL JOURNEYMAN Common Visit Codes: [id number] OBS CARE (HIGH) SHEET METAL JOURNEYMAN Procedure Codes: 25431-53- NON-STRESS TEST KAT LEWIS DO Aug 28, 2025 08:05
== END 2025-08-26 14:23 | disposition home or self-care (01) ==
LOC: LDRP 12:58
PROVIDERS: ADMIT Obstetrics & Gynecology; ATTEND Obstetrics & Gynecology
DX: O24.419 Gestational diabetes mellitus in pregnancy, unspecified control (principal); O26.893 Other specified pregnancy related conditions, third trimester; R51.9 Headache, unspecified; O09.523 Supervision of elderly multigravida, third trimester; Z3A.34 34 weeks gestation of pregnancy; Z98.890 Other specified postprocedural states
CPT/HCPCS: 76818; 81002; 82962; 94760; A4649; G0378; 59025; 76819

== ENCOUNTER 2025-08-27 09:32 | Outpatient (CLI) | payer OTHER, MEDICAID ==
[2025-08-27 10:35] LABS: Alanine Aminotransferase 23 U/L (7-40); Albumin 3.7 g/dL (3.2-4.8); Anion Gap 9 (5-15); BUN/Creatinine Ratio 15.6 (10.0-20.0); Calcium 9.1 mg/dL (8.7-10.4); Carbon Dioxide 22 mmol/L (20-31); Glucose 76 mg/dL (74-106); Hemoglobin 11.0 g/dL (12.2-16.2); Potassium 4.4 mmol/L (3.5-5.1); Sodium 139 mmol/L (136-145); Total Protein 6.4 g/dL (5.7-8.2)
[2025-08-27 10:36] LABS: Bilirubin, Total 0.3 mg/dL (0.2-1.0)
[2025-08-27 10:39] LABS: Hematocrit 33.9 % (36.0-46.0); Mean Corpuscular Hemoglobin 25.7 pg (28.0-32.0); Mean Corpuscular Volume 79.3 fL (80.0-100.0); Nucleated Red Blood Cells % 0.1 %
[2025-08-27 10:42] LABS: Alkaline Phosphatase 132 U/L (46-116); Blood Urea Nitrogen 7 mg/dL (9-23); Chloride 108 mmol/L (98-107)
[2025-08-29 06:07] LABS: Chlamydia Trachomatis, NAA Negative (Negative); Neisseria gonorrhoeae, NAA Negative (Negative)
== END 2025-08-27 17:00 | disposition home or self-care (01) ==
LOC: LAB 09:32
DX: Z34.80 Encounter for supervision of other normal pregnancy, unspecified trimester (principal); Z3A.00 Weeks of gestation of pregnancy not specified
CPT/HCPCS: 36415; 80053; 85025; 86780

== ENCOUNTER 2025-08-29 07:02 | Observation (INO) | payer OTHER, MEDICAID ==
--- NOTE | 2025-08-29 07:59 | DVH ---
CLINICAL HISTORY: Gestational diabetes. Polyhydramnios. Advanced maternal age. COMPARISON: US BIOPHYSICAL PROFILE on DOS: 08/26/25, US BIOPHYSICAL PROFILE on DOS: 08/23/25, US BIOPHYSICAL PROFILE on DOS: 08/19/25 TECHNIQUE: biophysical profile was performed. Transabdominal sonographic images of the fetus were obtained. FINDINGS: The fetus is in cephalic position. heart rate measures 147 BPM. Amniotic fluid index measures 18.3 cm. The placenta is anterior in position. BPP profile is an overall score of 8/8, with 2/2 points for breathing, with at least one episode of breathing over a 30 second duration during a 30 minute observation, 2/2 points for movements, with 3 or more discrete body or limb movements, 2/2 points for tone, with one or more episodes of extremity extension with return to flexion, or opening and closing of hand, and 2/2 points for amniotic fluid, with at least 1 pocket of amniotic fluid that measures 2 cm in 2 perpendicular planes. IMPRESSION: BPP score of 8/8.
--- NOTE | 2025-08-29 08:02 | DVHDS2 ---
Physician Discharge Progress N Final Diagnosis: polyhydramnia 34 wks Operations or Procedures: Operations or Procedures nst reactive reviwed,sono Condition on Discharge: Good Disposition: Home Discharge Instructions: Diet: Regular, Consistent carbohydrate Activity: No Restrictions, As Tolerated Medications: na Follow Up Care: Specialist: 3d Discharge Statement: "Patient was advised to return to the ER or call 911 if any headaches, dizziness, shortness of breath, chest pain, abdominal pain, bleeding, fevers, or worsening of medical condition. Patient was counseled about treatment plan, medications, possible side effects, patientverbalized understanding. All questions were answered to the best of my ability. This discharge took greater then 30 minutes in planning, reviewing documentation, counseling the patient, and discussing with other team members." Visit Coding OBGYN Date of Service: Aug 29, 2025 Billing Provider: KAT LEWIS DO NEW CLIENT BANKING SERVICES CLERK Common Visit Codes: [id number] OBS CARE (HIGH) NEW CLIENT BANKING SERVICES CLERK Procedure Codes: 72295-45- NON-STRESS TEST KAT LEWIS DO Aug 29, 2025 08:02
== END 2025-08-29 08:09 | disposition home or self-care (01) ==
LOC: LDRP 07:02 → UNDOADMOB 07:02 → LDRP 07:12
PROVIDERS: ADMIT Obstetrics & Gynecology; ATTEND Obstetrics & Gynecology
DX: O40.3XX0 Polyhydramnios, third trimester, not applicable or unspecified (principal); Z3A.34 34 weeks gestation of pregnancy; Z79.899 Other long term (current) drug therapy; Z98.890 Other specified postprocedural states
CPT/HCPCS: 76818; 81002; 82948; 82962; 94760; A4649; G0378; 59025; 76819

== ENCOUNTER 2025-09-02 12:58 | Observation (INO) | payer OTHER, MEDICAID ==
--- NOTE | 2025-09-02 14:11 | DVH ---
BIOPHYSICAL PROFILE HISTORY: GDMA2/ AMA TECHNIQUE: Multiple transabdominal real-time grayscale sonographic images through the gravid uterus of the fetus with duplex Doppler color flow and M-mode spectral analysis FINDINGS: BIOPHYSICAL PROFILE: breathing score: 2 movement score: 2 tone score: 2 Quantitative JAYMIE score: 2 (JAYMIE: 20.2 cm, mvp: 8.7 cm.) Total score: 8/8 The cervix N/V Single live fetus in cephalic presentation. heart rate 160 beats per minute. Anterior Grade 2 placenta without previa or abruption Single live fetus at 35 weeks 2 days Biophysical profile score 8/8 corresponding to an BRIAN of 10/05/2025 Estimated weight not calculated g IMPRESSION: 1. Biophysical profile score: 8/8.
--- NOTE | 2025-09-03 08:08 | DVHDS2 ---
Physician Discharge Progress N Final Diagnosis: gdm ,ama,35wks Operations or Procedures: Operations or Procedures nst reactive reviwed,sono Condition on Discharge: Good Disposition: Home Discharge Instructions: Diet: Consistent carbohydrate Activity: No Restrictions, As Tolerated Follow Up/Referral: [facility] a 10:00 am for NST/BPP Medications: na Follow Up Care: Specialist: 3d Discharge Statement: "Patient was advised to return to the ER or call 911 if any headaches, dizziness, shortness of breath, chest pain, abdominal pain, bleeding, fevers, or worsening of medical condition. Patient was counseled about treatment plan, medications, possible side effects, patientverbalized understanding. All questions were answered to the best of my ability. This discharge took greater then 30 minutes in planning, reviewing docume ntation, counseling the patient, and discussing with other team members." Visit Coding OBGYN Date of Service: Sep 02, 2025 Billing Provider: KAT LEWIS DO LEADER ASSEMBLER Common Visit Codes: [id number] OBS CARE (HIGH) LEADER ASSEMBLER Procedure Codes: 77160-89- NON-STRESS TEST KAT LEWIS DO Sep 03, 2025 08:08
== END 2025-09-02 14:18 | disposition home or self-care (01) ==
LOC: LDRP 12:58
PROVIDERS: ADMIT Obstetrics & Gynecology; ATTEND Obstetrics & Gynecology
DX: O24.419 Gestational diabetes mellitus in pregnancy, unspecified control (principal); O09.523 Supervision of elderly multigravida, third trimester; Z3A.35 35 weeks gestation of pregnancy; Z98.890 Other specified postprocedural states
CPT/HCPCS: 76818; 81002; 82948; 82962; 94760; A4649; G0378; 59025; 76819

== ENCOUNTER 2025-09-05 10:00 | Observation (INO) | payer OTHER, MEDICAID ==
--- NOTE | 2025-09-05 11:05 | DVH ---
PROCEDURE: US BIOPHYSICAL PROFILE 09/05/2025 10:32 AM INDICATION: GDMA2 Poly COMPARISON: US BIOPHYSICAL PROFILE on DOS: 09/02/25, US BIOPHYSICAL PROFILE on DOS: 08/29/25, US BIOPHYSICAL PROFILE on DOS: 08/26/25 TECHNIQUE: Sonogram of gravid uterus utilizing grayscale and color techniques. FINDINGS: Single living intrauterine gestation. Presentation: Cephalic Placenta: Anterior, grade 2 heart rate: 149 bpm JAYMIE: 18.7 cm, DVP: 7.6 cm Maternal cervix: Not visualized Biophysical Profile: breathing score: 2 movement score: 2 tone: 2 Quantitative JAYMIE score: 2 Total score: 8/8 IMPRESSION: 1. Single living as above. 2. Biophysical profile score: 8/8.
--- NOTE | 2025-09-05 16:46 | DVHDS2 ---
Physician Discharge Progress N Final Diagnosis: gdm Operations or Procedures: Operations or Procedures nst reactive reviwed,sono Condition on Discharge: Good Disposition: Home Discharge Instructions: Diet: Regular, Consistent carbohydrate Activity: No Restrictions, As Tolerated Medications: na Follow Up Care: Specialist: 3d Discharge Statement: "Patient was advised to return to the ER or call 911 if any headaches, dizziness, shortness of breath, chest pain, abdominal pain, bleeding, fevers, or worsening of medical condition. Patient was counseled about treatment plan, medications, possible side effects, patientverbalized understanding. All questions were answered to the best of my ability. This discharge took greater then 30 minutes in planning, reviewing documentation, counseling the patient, and discussing with other team members." Visit Coding OBGYN Date of Service: Sep 05, 2025 Billing Provider: KAT LEWIS DO DJ INSTRUCTOR Common Visit Codes: [id number] OBS CARE (HIGH) DJ INSTRUCTOR Procedure Codes: 49908-59- NON-STRESS TEST KAT LEWIS DO Sep 05, 2025 16:46
== END 2025-09-05 11:40 | disposition home or self-care (01) ==
LOC: LDRP 10:00 → UNDOADMOB 10:00 → LDRP 10:28
PROVIDERS: ADMIT Obstetrics & Gynecology; ATTEND Obstetrics & Gynecology
DX: O24.419 Gestational diabetes mellitus in pregnancy, unspecified control (principal); Z3A.35 35 weeks gestation of pregnancy; Z98.890 Other specified postprocedural states
CPT/HCPCS: 76818; 81002; 82948; 94760; A4649; G0378; 59025; 76819